=== PATIENT | male | born 1955 | race Caucasian/White ===

== ENCOUNTER 2017-10-05 06:16 | Day surgery (SDC) | payer OTHER ==
[2017-10-05] MEDS ORDERED: LIDOCAINE 2%/EPI MPF (SDV) 20 ML VIAL (07:34)
[2017-10-05] MEDS ORDERED: MIDAZOLAM 1 MG/ML 2 ML INJ (07:37)
== END 2017-10-05 09:35 | disposition home or self-care (01) ==
LOC: CCL 06:16 → SDS 06:16 → CCL 09:35
DX: I48.91 Unspecified atrial fibrillation (principal)
CPT/HCPCS: 33282; 93005

== ENCOUNTER 2018-02-12 12:29 | Day surgery (SDC) | payer OTHER | END 2018-02-12 15:25 | disposition home or self-care (01) | LOC: GIL 12:29 | DX: Z86.010 Personal history of colon polyps (principal); K29.70 Gastritis, unspecified, without bleeding; I48.91 Unspecified atrial fibrillation | CPT/HCPCS: 43239; 88305 ==